=== PATIENT | female | born 1975 | race Caucasian/White ===

== ENCOUNTER 2016-03-15 17:38 | Emergency (ER) | payer OTHER ==
[2016-03-15 17:44] VITALS: BP 113/77; PULSE 95; TEMP 97.8; BMI 26.3
--- NOTE | 2016-03-15 18:55 | PDOC ---
History of Present Illness - General Chief Complaint: Cold Symptoms Stated Complaint: FEVER/COUGH/SORE THROAT Time Seen by Provider: 03/15/16 18:13 History Source: Patient - History of Present Illness Initial Comments: 03/15/16 18:51 Patient came to emergency department for evaluation of cough 2 weeks, fevers, sore throat. Unable to see PMD secondary to insurance issues. Patient has been using [id number] medications with some relief. Timing/Duration: reports: just prior to arrival Severity: reports: mild, moderate Past History - Travel Traveled outside of the country in the last 30 days: Yes Close contact w/someone who was outside of country & ill: Yes - Past Medical History Allergies/Adverse Reactions: Allergies Allergy/AdvReac Type Severity Reaction Status Date / Time No Known Drug Allergies Allergy Verified 03/15/16 17:44 Home Medications: Ambulatory Orders No Home Medications 0 dose .ROUTE UTDICT 12/14/11 Acetaminophen [Tylenol .Regular Strength -] 650 mg PO Q4H PRN #0 tablet Ibuprofen [Motrin -] 600 mg PO Q4H PRN #0 tablet 12/18/13 Oxycodone HCl/Acetaminophen [Percocet 5-325 mg Tablet -] 1 - 2 tab PO Q6H PRN # 20 tab 12/18/13 Albuterol Sulfate [Proventil HFA Inhaler -] 1 - 2 inh PO QID #1 inhaler Azithromycin [Zithromax -] 250 mg PO UTDICT #6 tab 03/15/16 Asthma: No Cancer: No Cardiac Disorders: No Diabetes: No HTN: No Seizures: No Thyroid Disease: No - Immunization History Immunization Up to Date: Yes - Psycho/Social/Smoking Cessation Hx Anxiety: No Suicidal Ideation: No Smoking Status: Yes Smoking History: Current every day smoker Number of Cigarettes Smoked Daily: 5 Information on smoking cessation initiated: Yes 'Breaking Loose' booklet given: 03/15/16 Hx Alcohol Use: No Drug/Substance Use Hx: No Substance Use Type: None Hx Substance Use Treatment: No Respiratory Specific PMHX - Complaint Specific PMHX Angina: No Bronchitis: No Pneumonia: No Review of Systems - Review of Systems Able to Perform ROS?: Yes Is the patient limited Egyptian proficient: Yes Constitutional: Yes: Symptoms Reported, See HPI, Fever, Malaise HEENTM: Yes: Symptoms Reported Respiratory: Yes: Symptoms reported, See HPI, Cough, Wheezing Cardiac (ROS): No: Symptoms Reported Musculoskeletal: Yes: Symptoms Reported, See HPI Integumentary: Yes: Symptoms Reported, See HPI All Other Systems: Reviewed and Negative *Physical Exam - Vital Signs Last Vital Signs Temp Pulse Resp BP Pulse Ox 97.8 F 95 H 18 113/77 100 03/15/16 17:42 03/15/16 17:42 03/15/16 17:42 03/15/16 17:42 03/15/16 17:42 - Physical Exam General Appearance: Yes: Nourished, Appropriately Dressed, Apparent Distress HEENT: positive: AJ, Normal ENT Inspection, TMs Normal, Pharynx Normal (no redness swelling or exudate), Nasal Congestion (clear), Rhinorrhea Neck: positive: Supple, Lymphadenopathy (R), Lymphadenopathy (L). negative: Tender Respiratory/Chest: positive: Lungs Clear, Normal Breath Sounds Gastrointestinal/Abdominal: positive: Normal Bowel Sounds, Soft Extremity: positive: Normal Capillary Refill, Normal Inspection Integumentary: positive: Dry, Warm, Pale Neurologic: positive: maintenance tech II-XII NML intact, Fully Oriented, Alert, Normal Mood/ Affect, Normal Response, Motor Strength 5/5 Progress Note - Progress Note Progress Note: Bronchitis, will treat with Zithromax and Proventil as patient had significant improvement after treatment. Will follow-up with PMD *DC/Admit/Observation/Transfer Diagnosis at time of Disposition: Upper respiratory infection, viral - Discharge Dispostion Disposition: HOME Condition at time of disposition: Stable Admit: No - Patient Instructions Printed Discharge Instructions: DI for Acute Bronchitis Additional Instructions: Rest, drink lots of fluids: Teas, water, soups, Pedialyte Saltwater gargles Steamy showers/seem to face break up mucus Avoid contact with others until fevers and cough resolved Lots of handwashing and good hygiene Continue [id number] medications for symptomatic relief Tylenol or Motrin for fever and pain Zithromax as directed 2 puffs of Proventil inhaler 4 times a day for the next 3 days then as needed for continued cough and shortness of breath Followup with private physician in one to 2 days Return to emergency department for worsened symptoms, fevers, dehydration - Post Discharge Activity Work/School Note: Back to Work
== END 2016-03-15 19:01 | disposition home or self-care (01) ==
LOC: JERFT 17:38
DX: J06.9 Acute upper respiratory infection, unspecified (principal); F17.210 Nicotine dependence, cigarettes, uncomplicated
CPT/HCPCS: 99281-25